=== PATIENT | female | born 1965 | race Caucasian/White ===

== ENCOUNTER 2017-11-18 21:33 | Emergency (ER) | payer SELFPAY ==
[~2017-11-18] VITALS: Ht 165.1 cm; Wt 81.6 kg
[2017-11-18 21:46] VITALS: BP 132/92
--- NOTE | 2017-11-18 21:49 | NUR ---
TO LOBBY A/W BED, GERMAINE KIM NOTED
--- NOTE | 2017-11-18 22:10 | NUR ---
ASSUMED CARE OF PT AT THIS TIME. C/O COUGH, CONGESTION, AND SORETHROAT X 3 DAYS. AAOX4 WITH EVEN AND STEADY GAIT; LUNGS CLEAR BL; PATIENT STATES PAIN OF 8/10 AT THIS TIME; VSS; PATIENT POSITIONED FOR COMFORT; ER MD MADE AWARE OF PT STATUS. WILL CONTINUE TO MONITOR.
--- NOTE | 2017-11-18 22:12 | NUR ---
Patient being evaluated by physician at bedside.
[2017-11-18 22:22] VITALS: BP 132/92
--- NOTE | 2017-11-18 22:22 | NUR ---
Patient discharged with v/s stable BY DR ANTHONY. Written and verbal after care instructions given and explained DR ANTHONY. Patient alert, oriented and verbalized understanding of instructions. Ambulatory with steady gait. All questions addressed prior to discharge. ID band removed. Patient advised to follow up with PMD. Rx of PROMETHAZINE DM, AUGMENTIN given. Patient educated on indication of medication including possible reaction and side effects. Opportunity to ask questions provided and answered.
== END 2017-11-18 22:22 | disposition home or self-care (01) ==
LOC: MED 21:33
DX: J20.9 Acute bronchitis, unspecified (principal); J45.909 Unspecified asthma, uncomplicated; I10 Essential (primary) hypertension; M79.7 Fibromyalgia
CPT/HCPCS: 99283